=== PATIENT | male | born 2000 | race Caucasian/White ===

== ENCOUNTER 2023-01-29 17:42 | Emergency (ER) | payer MEDICAID ==
[~2023-01-29] VITALS: Ht 165.1 cm; Wt 44.5 kg
[2023-01-29 17:48] VITALS: BP 116/73; PULSE 119; RESP 18; TEMP 99.1; O2SAT 97
--- NOTE | 2023-01-29 20:12 | NUR ---
To bed 11
[2023-01-29] MEDS ORDERED: ONDANSETRON 4 MG ODT PO ONE (20:20)
[2023-01-29] MEDS ORDERED: KETOROLAC 15 MG/ML VIAL IM ONE (20:20)
[2023-01-29] MEDS ORDERED: ONDA-188 PO (21:01)
[2023-01-29] MEDS ORDERED: BISM262C53 PO (21:01)
[2023-01-29] MEDS ORDERED: ACET-2619 PO (21:01)
[2023-01-29 21:14] VITALS: BP 116/73; PULSE 119; RESP 18; TEMP 98; O2SAT 97
--- NOTE | 2023-01-29 21:15 | NUR ---
Patient discharged with v/s stable. Written and verbal after care instructions given and explained. New rx tylenol, peptobismol and ondansetron. Patient verbalized understanding. Ambulatory with steady gait. All questions addressed prior to discharge. Advised to follow up with PMD.
== END 2023-01-29 21:15 | disposition home or self-care (01) ==
LOC: MED 17:42
DX: B34.9 Viral infection, unspecified (principal); Z79.899 Other long term (current) drug therapy; Z20.822 Contact with and (suspected) exposure to COVID-19
CPT/HCPCS: 71045; 87426; 87804; 96372; 99284; J1885; Q0092; Q0162